=== PATIENT | male | born 1935 | race Caucasian/White ===

== ENCOUNTER 2017-10-06 11:22 | Inpatient (IN) | payer OTHER ==
[~2017-10-06] VITALS: Ht 165.1 cm; Wt 53.1 kg
[2017-10-06] MEDS ORDERED: ONDANSETRON INJ 2 MG/ML 2 ML VIAL IV PRN (11:30)
[2017-10-06] MEDS ORDERED: ACETAMINOPHEN 325 MG TAB PO PRN (11:30)
[2017-10-06 12:24] VITALS: BP 116/66; PULSE 62; TEMP 36.4; O2SAT 96
[2017-10-06 12:39] LABS: BASO % 0.5 %; BASO ABS # 0.04 K/uL (0-0.2); EOS % 6.6 %; EOS ABS # 0.51 K/uL (0-0.5); HEMATOCRIT 33.8 % (42-52); HEMOGLOBIN 11.3 g/dL (14.0-18.0); IG# 0.01 K/uL (0.00-0.02); LYMPH % 28.8 %; LYMPH ABS # 2.22 K/uL (1.2-3.4); MEAN CELL VOLUME 91.1 fL (80-100); MEAN CORPUSCULAR HEMOGLOBIN 30.5 pg (25-34); MEAN PLATELET VOLUME 9.4 fL (7.4-10.4); MONO % 8.9 %; MONO ABS # 0.69 K/uL (0.11-0.59); NEUT % 55.1 %; NEUT ABS # 4.25 K/uL (1.4-6.5); PLATELET COUNT 302 K/uL (130-400); RED CELL DISTRIBUTION WIDTH CV 13.9 % (11.5-14.5); RED CELL DISTRIBUTION WIDTH SD 46.2 fL (36.4-46.3); WHITE BLOOD COUNT 7.72 K/uL (4.8-10.8)
[2017-10-06 12:44] LABS: MEAN CORPUSCULAR HGB CONC 33.4 g/dl (32-36)
[2017-10-06 12:49] LABS: PTT PATIENT 28.2 SECONDS (21.0-31.0)
[2017-10-06 12:55] VITALS: Ht 165.1 cm; Wt 53.1 kg
[2017-10-06 12:57] LABS: BLOOD UREA NITROGEN 30 mg/dl (7-18); CALCIUM 8.8 mg/dl (8.5-10.1); CARBON DIOXIDE 26 mmol/L (21-32); CREATININE 2.23 mg/dl (0.60-1.40); GLUCOSE 77 mg/dl (70-99); POTASSIUM 3.4 mmol/L (3.5-5.1); SODIUM 134 mmol/L (136-145)
[2017-10-06] MEDS ORDERED: PIPERACILL/TAZOBAC CONSULT ACTIVE PRN (13:15)
--- NOTE | 2017-10-06 13:16 | NUR ---
A/Obs- Patient direct admit from Dr. Rizo's office for hemoptysis. Arrived to floor via wheelchair at 1200. Self ambulated into room. Oriented to room. Vitals taken. Admission packet filled out. Code and fall paperwork completed. Admission entered into computer. NPO after midnight. Call sr within reach. Will continue to monitor.
[2017-10-06] MEDS ORDERED: PIPERACILL/TAZOBAC IV 3.375 GM in DEXTROSE 5% 100ML 100 ML IV ONE (13:30)
[2017-10-06] MEDS ORDERED: IV FLUIDS COMPLETED PRN (14:00)
[2017-10-06] MEDS: IPRATROPIUM BROMIDE/ALBUTEROL respimat INH INH SCH ×3 (14:03→20:31)
--- NOTE | 2017-10-06 14:12 | DIAGNOSTIC IMAGING REPORT ---
CHEST ONE VIEW PORTABLE CLINICAL HISTORY: 82 years-old Male presenting with lung cancer wih hemoptysis. TECHNIQUE: Portable upright AP view of the chest was obtained. COMPARISON: None. FINDINGS: Median sternotomy wires and mediastinal surgical clips noted. Atherosclerosis of aortic arch. Cardiac silhouette normal in size. Suggestion of projectional distortion of the right hilum with inferior retraction. Reticular basilar predominant opacities. No large effusion or pneumothorax. Osseous structures normal. Upper abdomen normal. IMPRESSION: 1. Apparent inferior retraction of the right hilum raises concern for architectural distortion secondary to an underlying mass or fibrosis. This be better evaluated with chest CT. 2. Basilar predominant reticulation also suggests chronic lung disease. Electronically signed by: Petr Frey M.D. 10/06/2017 2:10 PM Dictated Date/Time: 10/06/2017 2:08 PM
--- NOTE | 2017-10-06 14:45 | Anesthesiology Progress Note ---
Anesthesia Progress Note Date of Service Oct 06, 2017. Progress Notes The patient is an 82 y/o male scheduled for a bronchoscopy tomorrow due to hemoptysis for the past week. The patient has no chest pain, SOB, or other symptoms that he is concerned about. He was referred to Dr. Rizo from his fountain attendant in [place]. Other PMH includes CAD s/p CABG with possible ID 12 years ago, HTN, dyslipidemia, COPD, longtime smoking history, GERD, lumbago, CKD (unknown to the patient), anemia, and prostate cancer. The patient states that he can walk up and down stairs without chest pain or SOB although he does need to use his inhaler. His CXR shows inferior retraction of his R hilum and basilar reticulation. His EKG shows sinus bradycardia. Labs are significant for hgb 11.3, potassium 3.4, BUN 30, and Cr 2.2. On exam, the patient appeared to be comfortably sitting in bed. MP 1 view with good neck extension. He is edentulous. Lungs were clear but diminished bilaterally. Heart was RRR but difficult to auscultate. Carotids were negative for bruits. The patient is an ASA 3. The patient was consented for general anesthesia. He was counseled to remain NPO after 2300 except for sips of water with pills.
--- NOTE | 2017-10-06 15:17 | HISTORY & PHYSICAL EXAMINATION ---
DATE OF ADMISSION: 10/06/2017 HISTORY OF PRESENT ILLNESS: Mr. 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 He also has a mass in his bronchus intermedius with collapse of the middle lobe. He was sent up from [place] for me to evaluate. We do not have tissue diagnosis on the right side. I was attempting to set him with an endobronchial ultrasound and with a bronchoscopy to biopsy his right middle lobe occlusive process. Both of these areas lit up on the PET scan. Unfortunately, the patient is in the [place] system, it has been difficult to get approval, so we have been trying to get this scheduled for the past month. The patient called this morning as he had hemoptysis. He had some significant hemoptysis and stated that he was coughing up "a whole trash bag" full of tissues filled with blood. When I saw him in the office, I went ahead and admitted him. I am going to set him up for bronchoscopy and an endobronchial ultrasound tomorrow. I am quite concerned about the possibility of metastatic disease here; however, I think we need a tissue diagnosis. The mass in his right side, in the bronchus intermedius does have some hypermetabolic activity; however, none of his lymph nodes are really involved. I do not see much lymphadenopathy. It is possible we were dealing with 2 different processes. I felt that a tissue diagnosis on the right was very important. The patient quit smoking a few years ago. He started smoking at age 12, smoked for 65 years. The patient states that his weight has been stable over the last couple of months. He still went from 155 to 119. He was admitted today directly from the office. PAST MEDICAL HISTORY: 1. History of prostate cancer. 2. Long history of cigarette smoking. 3. Hypothyroidism. 4. Hypercholesterolemia. 5. Hypertension. 6. Questionable glaucoma. 7. Osteoarthritis. 8. Coronary artery disease. 9. Lumbosacral disk disease. PAST SURGICAL HISTORY: 1. Inguinal herniorrhaphy. 2. Lumbar discectomy. 3. Coronary artery bypass grafting. 4. Percutaneous transluminal angioplasty and stent. ALLERGIES: No known drug allergies. MEDICATIONS: 1. Amlodipine. 2. Aspirin. 3. Casodex. 4. Combivent inhaler. 5. Gabapentin. 6. Meloxicam. 7. Omeprazole. 8. Ranitidine. 9. Simvastatin. 10. Timolol eyedrops. 11. Ambien. SOCIAL HISTORY: The patient worked in a warehouse for many years. He was exposed to some asbestos in the [place]. He is , lives alone but his 4 children are devoted to him. He quit smoking 3 years ago. FAMILY MEDICAL HISTORY: Interestingly enough, his mother from scarlet fever. His father from "natural causes." His children are alive. He had 6 siblings who are all for various reasons. REVIEW OF SYSTEMS: Over the last year, the patient has lost more than 25% of his body weight; however, he states the last couple of months, he has been relatively stable. He has been coughing up some blood. He is a bit "tired" and does not have much of an appetite. He denies any fevers, chills or productive cough other than hemoptysis. He denies chest pain or palpitations. He denies any abdominal pain, nausea or vomiting. He has had no skin breakdown. He denies any auditory or visual symptoms. He has had no neurologic symptoms. PHYSICAL EXAMINATION: GENERAL: This is a thin male who stands 5 feet 5 inches tall and weight is 109 pounds today. He is awake and alert. HEENT: His extraocular movements are intact. His pupils are equally round and reactive. Sclerae a bit pale but anicteric. He does have bilateral arcus senilis. He is edentulous. His tongue is midline. He has no oral mucosal lesions. NECK: Thin but supple and I detect no evidence of carotid bruits or lymphadenopathy. He has no neck vein distention. He has no axillary adenopathy. LUNGS: Actually, moving air fairly well. He has decreased breath sounds throughout, but I detect no wheezing. HEART: He has a regular rate and rhythm of his heart. CHEST: He has a well-healed sternotomy incision with no click. ABDOMEN: Flat, soft, nontender, I feel no evidence of abdominal aortic aneurysm. EXTREMITIES: Upon evaluation of his lower extremities, he has no edema. He has no skin breakdown. His feet are warm and well perfused, although I had some difficulty palpating his pedal pulses. NEUROLOGIC: He is awake, alert and oriented with no focal deficits. ASSESSMENT AND PLAN: Hemoptysis with known lung cancer. We are going to set him up for a diagnostic and perhaps therapeutic bronchoscopy in the morning. ANNALEE
[2017-10-06 15:38] VITALS: BP 106/62; PULSE 62; TEMP 36.3; O2SAT 96
[2017-10-06] MEDS ORDERED: METO25TA56 PO (15:47)
[2017-10-06] MEDS ORDERED: LATA0.5S OP (15:47)
[2017-10-06] MEDS ORDERED: POTA-639 PO (15:47)
[2017-10-06] MEDS ORDERED: COLE1TAB PO (15:47)
[2017-10-06] MEDS ORDERED: DORZ2SOL19 OP (15:47)
[2017-10-06] MEDS ORDERED: HYDR12.55 PO (15:47)
[2017-10-06] MEDS ORDERED: PRLSR20 PO (15:47)
[2017-10-06] MEDS ORDERED: CLOP1TAB15 PO (15:47)
[2017-10-06] MEDS ORDERED: GABA-113 PO (15:47)
[2017-10-06] MEDS ORDERED: MELO7.5T5 PO (15:47)
[2017-10-06] MEDS ORDERED: BICA50TA40 PO (15:47)
--- NOTE | 2017-10-06 16:00 | NUR ---
Obs. Note- Patient resting in bed. No complaints of pain. NPO after midnight for bronch tomorrow. Call sr within reach. Will continue to monitor.
--- NOTE | 2017-10-06 16:59 | NUR ---
A-Paged Dr. Fragoso with results of EKG. Did not return my call.
[2017-10-06 20:00] VITALS: O2SAT 96
--- NOTE | 2017-10-06 20:00 | NUR ---
OBS: Direct admit with hemoptyis. Alert and oriented, pleasant and cooperative. No complaint at this time. Plan bronchoscopy for AM.
[2017-10-06] MEDS: BICALUTAMIDE 50 MG TAB PO SCH (20:33)
[2017-10-06] MEDS: PANTOprazole SOD 40 MG TAB PO SCH (20:34)
[2017-10-06] MEDS: RANITIDINE HCL 150 MG TAB PO SCH (20:34)
[2017-10-06] MEDS: GABAPENTIN 300 MG CAP PO SCH (20:34)
[2017-10-06] MEDS: SIMVASTATIN 80 MG TAB PO SCH (20:35)
[2017-10-07] VITALS (11 sets, daily range): BP systolic 84–101; BP diastolic 44–64; PULSE 62–91; TEMP 36.4–36.8; O2SAT 95–99
--- NOTE | 2017-10-07 | NUR ---
OBS: Resting well. No complaints. NPO after midnight.
[2017-10-07] MEDS: PIPERACILL/TAZOBAC IV 3.375 GM in DEXTROSE 5% 100ML 100 ML IV SCH ×2 (01:56→13:20)
--- NOTE | 2017-10-07 05:10 | NUR ---
OBS: Sleeping well tonight. IV abx infusing. No complaint or distress.
[2017-10-07] MEDS ORDERED: LIDOCAINE HCL 2% 2 ML VIAL (20MG/ML) ONE (06:55)
[2017-10-07] MEDS ORDERED: FENTANYL CITRATE INJ 50 MCG/1 ML 2 ML VIAL ONE (06:55)
[2017-10-07] MEDS ORDERED: PROPOFOL IV EMULSION 10 MG/ML 20 ML VIAL IV ONE (06:55)
[2017-10-07] MEDS ORDERED: MIDAZOLAM HCL 1 MG/ML 2ML VIAL ONE (06:55)
[2017-10-07] MEDS ORDERED: ONDANSETRON INJ 2 MG/ML 2 ML VIAL ONE (06:55)
[2017-10-07] MEDS ORDERED: DEXAMETHASONE SOD INJ 4 MG/ML VIAL ONE (06:55)
[2017-10-07] MEDS ORDERED: REMIFENTANIL 1 MG VIAL ONE (07:20)
[2017-10-07] MEDS ORDERED: PROPOFOL IV EMULSION 10 MG/ML 100 ML VIAL IV ONE (07:20)
--- NOTE | 2017-10-07 07:35 | History & Physical Bridge Note ---
H&P Re-Evaluation Bridge Note: I have examined the patient, reviewed the History & Physical and in the interval since the performance of the History & Physical I have noted the following changes of clinical significance: No changes noted
--- NOTE | 2017-10-07 08:00 | NUR ---
Obs. Note- Patient currently out of room have bronchoscopy done.
[2017-10-07] MEDS ORDERED: ONDANSETRON INJ 2 MG/ML 2 ML VIAL IV PRN (08:30)
[2017-10-07] MEDS ORDERED: ATROPINE SULFATE 0.1 MG/ML 5ML SYR IV PRN (08:30)
[2017-10-07] MEDS ORDERED: EpHEDrine SULFATE INJ 50 MG/ML AMP IV PRN (08:30)
[2017-10-07] MEDS ORDERED: FENTANYL CITRATE INJ 50 MCG/1 ML 2 ML VIAL IV PRN (08:30)
[2017-10-07] MEDS: IPRATROPIUM BROMIDE/ALBUTEROL respimat INH INH SCH ×4 (09:00→20:50)
[2017-10-07] MEDS: TIMOLOL MALEATE 0.25% OP SOLN 5 ML BTL OP SCH (09:00)
[2017-10-07] MEDS: AMLODIPINE BESYLATE 5 MG TAB PO SCH (09:00)
[2017-10-07] MEDS: GABAPENTIN 300 MG CAP PO SCH ×2 (09:00→20:51)
[2017-10-07] MEDS: PANTOprazole SOD 40 MG TAB PO SCH ×2 (09:00→20:51)
[2017-10-07] MEDS ORDERED: THROMBIN FOR SOLN 20000 UNIT KIT ONE (09:08)
[2017-10-07] MEDS ORDERED: LARYING-O-JET KIT (LTA) ONE (09:24)
--- NOTE | 2017-10-07 10:28 | DIAGNOSTIC IMAGING REPORT ---
SINGLE VIEW CHEST CLINICAL HISTORY: Lung cancer. FINDINGS: An AP, portable, upright chest radiograph is compared to study dated 10/06/2017. The examination is degraded by portable technique and patient rotation. The patient is status post midline sternotomy. The heart is normal in size and there is atherosclerotic calcification of the thoracic ureter. The pulmonary vasculature is noncongested. There is advanced emphysema and chronic interstitial thickening. Trying for density along the right heart border likely represent right middle lobe collapse. There is an ill-defined mass lesion suggested in the left upper lobe measuring 2.9 cm. False of the left hilum may represent an enlarged pulmonary artery versus hilar adenopathy. There is increasing patchy airspace consolidation at the left lung base as compared to yesterday. A trace left pleural effusion is suspected. No pneumothorax is seen. The skeletal structures are osteopenic. The bony thorax is grossly intact. IMPRESSION: 1. Advanced emphysema. 2. There is increasing patchy airspace consolidation at the left lung base a small left pleural effusion is suspected. Correlate clinically for evidence of pneumonia/aspiration pneumonitis. 3. Suspect a left upper lobe pulmonary lesion. 4. Triangular opacity along the right cardiac border likely represents right middle lobe collapse. Electronically signed by: Gabriel Vicente M.D. 10/07/2017 10:26 AM Dictated Date/Time: 10/07/2017 10:24 AM
[2017-10-07] MEDS ORDERED: NALOXONE HCL 0.4 MG/1 ML VIAL/CARP ONE (11:02)
[2017-10-07] MEDS ORDERED: ALBUT/IPRATROP 3MG/0.5MG NEB 3 ML VIAL INH PRN (12:15)
--- NOTE | 2017-10-07 13:08 | NUR ---
A: Arrives to room E111 post op from bronchoscopy. Awake, alert and oriented X4 resting quietly in bed in no acute distress. Initial VS taken and recorded. director of front office applied, NSR. O2 on via oxy mask at 2lpm, spo2 90%, O2 increased to 6lpm. Dr. Rizo present at bedside. IV fluids of NSS initiated at 125ml/hr via left forearm access. Bladder scanned for 339ml, michael placed per Dr. Rizo. HOB elevated. Call sr within easy reach. Will continue to monitor.
[2017-10-07] MEDS: SODIUM CHLORIDE 0.9% 1000ML 1,000 ML IV SCH ×2 (13:30→17:19)
[2017-10-07] MEDS ORDERED: NURSING VERBAL MED ORDER ONE ×2 (13:45→15:45)
--- NOTE | 2017-10-07 13:46 | Critical Care Consultation ---
Critical Care Consultation Date of Consultation: Oct 07, 2017. Attending Physician: Chris Rizo MD Reason for Consultation: Postoperative care for difficulty in weaning/extubation History of Present Illness Zmt Operator: Dr. De Anda This is an 82 yo male that is POD #1 rigid bronchoscopy with biopsy. He has known NSCLCA on the left and had a suspicious lesion on the right. This was associated with hemoptysis and a 40 pound weight loss over the past several months. He was scheduled for elective bronchoscopy and possible biopsy and underwent that procedure this morning. During the procedure he had one episode of hypotension and required a single dose of jeana. Otherwise the procedure went well. EBL was minimal and the patient was generally hemodynamically stable. It was noted the patient has complete collapse of the right middle lobe secondary to a lesion. Dr. Rizo did not try to open this lobe. The patient was extubated and required re-intubation. The patient had rapid recovery and when I saw the patient in the PACU, he was following simple commands and was able to lift his head off the pillow for greater than 5 seconds. He was successfully extubated to an oxymask and transferred to ICU bed 111 for further monitoring overnight. At the time of my second examination patient was alert and oriented and able to confirm history and give a reliable review of systems. Patient has a prior history of known non-small cell lung cancer in the left. He follows with a sales account leader group in [place]. Primary care is provided through the [facility] in [place]. 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 He saw no benjamin but was exposed to asbestos on the ships. He was a previous one pack per day smoker and quit smoking three years ago. He worked in the [place] for a [employer]. He denies other environmental exposure or vocational exposure. His 30 years ago and since that time he has lived alone. His son Santi lives to his right and his grandson Santi lives to his left so he has plenty of family support at home. The patient does still drive locally and does his own shopping, cooking, cleaning, ADLs. His son helps with yard work and maintenance of the house. Past Medical/Surgical History PAST MEDICAL HISTORY: 1. History of prostate cancer. 2. 50 plus pack year cigarette smoking history. Quit 3 years ago 3. Hypothyroidism. 4. Hypercholesterolemia. 5. Hypertension. 6. Questionable glaucoma. 7. Osteoarthritis. 8. Coronary artery disease. 9. Lumbosacral disk disease. 10. NSCLCA on the left PAST SURGICAL HISTORY: 1. Inguinal herniorrhaphy. 2. Lumbar discectomy. 3. Coronary artery bypass grafting. 4. Percutaneous transluminal angioplasty and stent. Family History Mother of scarlet fever Father from neck or causes Three sons are alive. 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[employer]) Allergies Coded Allergies: No Known Allergies (Unverified , 10/06/17) Home Medications Scheduled Bicalutamide (Casodex), 50 MG PO DAILY Clopidogrel (Plavix), 75 MG PO DAILYBB Colestipol Hcl (Colestid), 1 GM PO DAILY Dorzolamide Hcl (Trusopt Oph), 1 DROPS OP BID Hydrochlorothiazide (Hydrochlorothiazide), 1 TAB PO DAILY Latanoprost (Xalatan 0.005% Oph Jen), 1 DROPS OP HS Meloxicam (Mobic), 7.5 MG PO DAILY Metoprolol Tartrate (Lopressor) (Lopressor), 1 TAB PO BID Omeprazole (Prilosec), 20 MG PO DAILY Potassium Ext Rel (Klor-Con), 20 MEQ PO DAILY Miscellaneous Medications Gabapentin (Neurontin), 300 MG PO Current Inpatient Medications Current Inpatient Medications Medications (Trade) Dose Ordered Sig/Balaji Route Start Time Stop Time Status Last Admin Dose Admin Acetaminophen (Tylenol Tab) 650 mg Q6H PRN PO 10/06/17 11:30 11/05/17 11:29 Ondansetron HCl (Zofran Inj) 4 mg Q6H PRN IV 10/06/17 11:30 11/05/17 11:29 Piperacillin Sod/ Tazobactam Sod 3.375 gm/Dextrose 115 ml @ 28.75 mls/ hr Q12H IV 10/07/17 02:00 10/13/17 23:59 10/07/17 01:56 28.75 MLS/HR Amlodipine Besylate (Norvasc Tab) 5 mg QAM PO 10/07/17 09:00 11/06/17 08:59 Albuterol/ Ipratropium (Combivent Respimat Inh) 1 puffs QID INH 10/06/17 13:00 11/05/17 12:59 10/07/17 13:31 1 PUFFS Piperacillin Sod/ Tazobactam Sod (Consult) 1 ea UD PRN N/A 10/06/17 13:15 11/05/17 13:14 Timolol Maleate (Timoptic 0.25% Oph Soln) 1 drops DAILY OP 10/07/17 09:00 11/06/17 08:59 Simvastatin (Zocor Tab) 80 mg PM PO 10/06/17 21:00 11/05/17 20:59 10/06/17 20:35 80 MG Ranitidine HCl (zANTac TAB) 150 mg HS PO 10/06/17 21:00 11/05/17 20:59 10/06/17 20:34 150 MG Pantoprazole Sodium (Protonix Tab) 40 mg BID PO 10/06/17 21:00 11/05/17 20:59 10/06/17 20:34 40 MG Gabapentin (Neurontin Cap) 900 mg HS PO 10/06/17 21:00 11/05/17 20:59 10/06/17 20:34 900 MG Gabapentin (Neurontin Cap) 300 mg QAM PO 10/07/17 09:00 11/06/17 08:59 Bicalutamide (Casodex Tab) 50 mg QPM PO 10/06/17 21:00 11/05/17 20:59 10/06/17 20:33 50 MG Miscellaneous (Iv Fluids Completed) 1 ea PRN PRN N/A 10/06/17 14:00 10/06/18 13:59 Sodium Chloride 1,000 ml @ 100 mls/hr Q10H IV 10/07/17 10:30 11/06/17 10:29 10/07/17 13:30 100 MLS/HR Albuterol/ Ipratropium (Duoneb) 3 ml Q4R PRN INH 10/07/17 12:15 11/06/17 12:14 Miscellaneous Information (Nursing Verbal Med Order) 1 ea ONE ONCE N/A 10/07/17 13:45 10/07/17 13:46 UNV Review of Systems A total of 12 systems was reviewed and is negative other than as listed above in the HPI Physical Exam Date Time Temp Pulse Resp B/P (MAP) Pulse Ox O2 Delivery O2 Flow Rate FiO2 10/07/17 13:30 36.5 71 18 89/51 (64) 95 Oxymask 6.0 10/07/17 13:00 36.8 62 20 88/64 (72) 95 Oxymask 10/07/17 12:35 67 16 111/53 95 Oxymask 5 10/07/17 12:25 36.4 67 16 105/58 95 Oxymask 5 10/07/17 12:15 83 16 111/59 95 Mechanical Ventilator 10/07/17 12:05 75 16 111/56 95 Mechanical Ventilator 10/07/17 11:55 81 20 110/63 95 Mechanical Ventilator 10/07/17 11:45 84 16 119/65 98 Mechanical Ventilator 10/07/17 11:35 86 16 130/69 100 Mechanical Ventilator 10/07/17 11:25 87 14 138/64 100 Ambu-Bag 15 10/07/17 11:15 80 14 167/76 99 Ambu-Bag 15 10/07/17 11:05 81 14 169/79 97 Ambu-Bag 15 10/07/17 10:55 72 14 161/72 88 Nasal Cannula 4 10/07/17 10:45 36.4 73 16 142/71 91 Nasal Cannula 4 10/07/17 10:35 72 16 144/68 91 Nasal Cannula 4 10/07/17 10:25 72 14 143/66 92 Oxymask 5 10/07/17 10:15 73 14 134/64 94 Oxymask 5 10/07/17 10:05 75 16 120/56 98 Oxymask 10 10/07/17 09:58 36.1 74 16 121/56 99 Oxymask 10 10/07/17 04:00 96 Room Air 10/07/17 00:00 96 Room Air 10/07/17 00:00 36.8 85 18 101/63 (76) 95 Room Air 10/06/17 20:00 96 Room Air 10/06/17 16:00 Room Air 10/06/17 15:38 36.3 62 20 106/62 (77) 96 Room Air GENERAL : No acute distress. EYES: No icterus, gaze conjugate. PERRL NOSE: No evidence of epistaxis. Oxymask in place MOUTH: No lesions or candidiasis. Upper and lower dentures in place. Bruising at the posterior oropharynx with no evidence of bleeding. No hoarseness NECK: Supple. No JVD. No stridor LUNGS: CTA B/L, no wheezes, rales or rhonchi. Decreased breath sounds in the right middle and lower lobes. No bronchospasm appreciated HEART: Regular, rate controlled ABDOMEN: Soft, NT, ND, BS Present EXTREMITIES: No LE edema, pedal pulses intact. Peripheral IV in the left hand NEURO: A&OX3. No focal neurological deficits Laboratory Results Last 24 Hours Test 10/07/17 11:23 10/07/17 11:24 10/07/17 13:22 Arterial Blood pH 7.09 Arterial Blood Partial Pressure CO2 93 mmHg Arterial Blood Partial Pressure O2 293 mm/Hg Arterial Blood HCO3 28 mmol/L Arterial Blood Oxygen Saturation 99.7 % Arterial Blood Base Excess -3.8 mEq/L Arterial Blood Gas Delivery 15 L Luther Test POS Bedside Blood Gas pH (LAB) 7.03 Bedside Blood Gas pCO2 (LAB) 100 mmHg Bedside Blood Gas pO2 (LAB) 288 mmHg Bedside Blood Gas HCO3 (LAB) 27 meq/L Bedside Blood Gas Total CO2 29 mEq/l Bedside Blood Gas Base Excess (LAB) -4.0 meq/L Bedside Blood Gas O2 Saturation 100.0 % Bedside Glucose 160 mg/dl Diagnostic Results SINGLE VIEW CHEST CLINICAL HISTORY: Lung cancer. FINDINGS: An AP, portable, upright chest radiograph is compared to study dated 10/06/2017. The examination is degraded by portable technique and patient rotation. The patient is status post midline sternotomy. The heart is normal in size and there is atherosclerotic calcification of the thoracic ureter. The pulmonary vasculature is noncongested. There is advanced emphysema and chronic interstitial thickening. Trying for density along the right heart border likely represent right middle lobe collapse. There is an ill-defined mass lesion suggested in the left upper lobe measuring 2.9 cm. False of the left hilum may represent an enlarged pulmonary artery versus hilar adenopathy. There is increasing patchy airspace consolidation at the left lung base as compared to yesterday. A trace left pleural effusion is suspected. No pneumothorax is seen. The skeletal structures are osteopenic. The bony thorax is grossly intact. IMPRESSION: 1. Advanced emphysema. 2. There is increasing patchy airspace consolidation at the left lung base a small left pleural effusion is suspected. Correlate clinically for evidence of pneumonia/aspiration pneumonitis. 3. Suspect a left upper lobe pulmonary lesion. 4. Triangular opacity along the right cardiac border likely represents right middle lobe collapse. Electronically signed by: Gabriel Vicente M.D. 10/07/2017 10:26 AM Assessment & Plan HEMOPTYSIS * Patient with known history of non-small cell lung cancer on the left * Right-sided lesion with middle lobe collapse * POD #[address] Rizo - pathology is pending * Hemoglobin 11.3, hematocrit 33.8 * Await pathology NON-SMALL CELL LUNG CANCER * Diagnostic bronchoscopy today for right lesion * Outpatient follow-up with oncology * Patient follows in [place] HISTORY OF PROSTATE CANCER * Continue Casodex 50 mg by mouth daily RENAL * BUN 30, creatinine 2.23 * Unknown baseline * Normal saline at 125 an hour * Follow serial labs * Strict I's and O's ELECTROLYTES * Sodium 134 * Normal saline at 125 mL per hour * Potassium 3.4 * KCl 40 milliequivalents by mouth * Follow serial labs ENDOCRINE * POC glucose 160 * Decadron injection * No history of diabetes mellitus * BMI 18.1 * Follow serial bedside glucose * SSI with NovoLog * Check hemoglobin A1c with a.m. labs CARDIOVASCULAR * History of hypertension * Home meds include hydrochlorothiazide 12.5 mg daily, and Lopressor 25 mg by mouth twice a day * Prior history of CABG - chronically on clopidogrel 75 mg by mouth daily * Continue home meds * Monitor on telemetry * Continue simvastatin for dyslipidemia ID * Afebrile * Empirically started on Zosyn * MRSA screening is negative IV ACCESS * Peripheral IV in place * No indication for central line at this time GI PROPHYLAXIS * Pantoprazole twice a day and ranitidine ordered * On omeprazole at home once daily DVT PROPHYLAXIS * No chemical prophylaxis secondary to hemoptysis and today's procedure * Continue starting chemical prophylaxis tomorrow if patient is stable * Discussed restarting clopidogrel with Dr. Rizo RESUSCITATION STATUS Lengthy discussion with the patient and his son Santi. At this point patient would like to be resuscitated as a full code if there is any meaningful chance of recovery. Patient states that should he have poor outcome he would not wish to be intubated for a prolonged period of time and does not want artificial feeding in that case. CCT: 60 minutes independent of any procedures Thank you for including us in the care of this patient. Please refer to Dr. De Anda's addendum for further recommendations. Addendum: Spoke with Gabriel Gallardo and [facility] regarding case. He was interviewed and examined. Patient's condition is poor. Progressive lung cancer with global performance decline. Palliative/hospice care would be appropriate. Recommend gentle hydration and general monitor/support.
--- NOTE | 2017-10-07 13:59 | NUR ---
A:DR CALIX IN TO SEE PT AT THIS TIME. PT'S FAMILY AT BEDSIDE
[2017-10-07] MEDS ORDERED: GLUCOSE 10 TABS/TUBE PO PRN (14:45)
[2017-10-07] MEDS ORDERED: GLUCOSE 40% GEL 15 GM TUBE PO PRN (14:45)
[2017-10-07] MEDS ORDERED: DEXTROSE 50% 50 ML SYR IV PRN (14:45)
[2017-10-07] MEDS ORDERED: GLUCAGON FOR INJ 1 MG VIAL SQ PRN (14:45)
--- NOTE | 2017-10-07 14:56 | Anesthesiology Progress Note ---
Anesthesia Post Op Note Date & Time Oct 07, 2017 at 13:03 Vital Signs Pain Intensity: 0 Vital Signs Past 12 Hours Date Time Temp Pulse Resp B/P (MAP) Pulse Ox O2 Delivery O2 Flow Rate FiO2 10/07/17 12:35 67 16 111/53 95 Oxymask 5 10/07/17 12:25 36.4 67 16 105/58 95 Oxymask 5 10/07/17 12:15 83 16 111/59 95 Mechanical Ventilator 10/07/17 12:05 75 16 111/56 95 Mechanical Ventilator 10/07/17 11:55 81 20 110/63 95 Mechanical Ventilator 10/07/17 11:45 84 16 119/65 98 Mechanical Ventilator 10/07/17 11:35 86 16 130/69 100 Mechanical Ventilator 10/07/17 11:25 87 14 138/64 100 Ambu-Bag 15 10/07/17 11:15 80 14 167/76 99 Ambu-Bag 15 10/07/17 11:05 81 14 169/79 97 Ambu-Bag 15 10/07/17 10:55 72 14 161/72 88 Nasal Cannula 4 10/07/17 10:45 36.4 73 16 142/71 91 Nasal Cannula 4 10/07/17 10:35 72 16 144/68 91 Nasal Cannula 4 10/07/17 10:25 72 14 143/66 92 Oxymask 5 10/07/17 10:15 73 14 134/64 94 Oxymask 5 10/07/17 10:05 75 16 120/56 98 Oxymask 10 10/07/17 09:58 36.1 74 16 121/56 99 Oxymask 10 10/07/17 04:00 96 Room Air Notes Mental Status: alert / awake / arousable, participated in evaluation Pt Amnestic to Procedure: Yes Nausea / Vomiting: adequately controlled Pain: adequately controlled Airway Patency, RR, SpO2: stable & adequate BP & HR: stable & adequate Hydration State: stable & adequate The patient is an 82 y/o male with a hx of COPD, [place] s/p CABG, CAD, HTN, dyslipidemia, CKD, Anemia and lung CA s/p EBUS/bronchoscopy with Dr. Rizo. Intraoperatively, the patient was intubated and placed under general anesthesia. The patient did well remaining hemodynamically stable with oxygen saturations of 100% on Fi02 of 1.0. During the rigid bronchoscopy the patient' s volatile anesthetic was turned off and the patient was given a TIVA with propofol and a remifentanil infusion for more consistent anesthesia. The propofol and remifentanil were discontinued at the end of the procedure. The patient's paralytic was fully reversed with 4/4 twitches obtained even prior to giving reversal. The patient was extubated by Brian, the DEBONE PROCESSING SUPERVISOR in the OR. He was following commands and spontaneously ventilating with a tidal volume of 323 ml, RR 18 and ETC02 of 40 prior to extubation. I was present as the patient was transferred to the PACU. Approximately 30 minutes after the patient was taken to PACU, I was called by the nurse to sign the patient out of the PACU. He stated that the patient was doing well. I went to the patient's bedside. He was saturating 92% on 4L NC,RR 14 and his BP was stable. The patient appeared to be still quite lethargic from his anesthetic and was only minimally responsive. I told the PACU nurse that I would not sign out the patient until he was more awake and that we would have to watch him longer. Several minutes after leaving the PACU I was called again by the PACU and told that the patient was being mask ventilated with the Ambu bag as his oxygen saturation had dropped to the 80s and he was unresponsive. I immediately went to the patient's bedside with Brian. The patient's SpO2 was in the 90s and BP was stable but the patient did not arouse to sternal rub. The patient's pupils were constricted, so Narcan 0.04mg IV x2 was given. The patient did not respond to the Narcan. It was difficult to maintain a mask seal with the Ambu bag due to the patient's anatomy so a LMA 5 was placed to help ventilate the patient. An ABG was drawn and showed a respiratory acidoses with PH 7.02 and PC02 100. The patient was reintubated and placed on the ventilator as his hypercarbia was the likely case of his sedation. Around 15 minutes after being placed on the ventilator, the patient started to become more alert. He opened his eyes and was following commands. He was pulling tidal volumes of 1L and his RR was 18. The patient was successfully extubated. He will be going to the ICU for further monitoring. A full report was given to Daniel Gallardo.
--- NOTE | 2017-10-07 14:57 | NUR ---
Pastoral Care, initial visit with pt, son, and [id number]. Pt has no church affiliation, did not express any spiritual or church needs or concerns. I introduced our service, offered spiritual and emotional support, and assured them of my continuing availability.
--- NOTE | 2017-10-07 15:06 | NUR ---
A: Dr. De Anda aware of Dr. Howell desire to keep map >80. New orders for bolus initiated as ordered. Report given to LUC Enrique, awaiting new orders.
--- NOTE | 2017-10-07 15:29 | NUR ---
RD received trigger for MUST & Low BMI, refer to linked note for full assessment and recommendations. Addendum: 10/07/17 at [address] Amended: Links added.
[2017-10-07] MEDS ORDERED: POTASSIUM CHLORIDE 10 MEQ TABCR PO ONE (15:45)
[2017-10-07] MEDS ORDERED: NOREPINEPHRINE BIT INJ 8 MG in DEXTROSE 5% 500ML 500 ML IV PRN (16:00)
[2017-10-07] MEDS: INSULIN ASPART 100 UNITS/ML 3 ML PEN SC SCH ×2 (16:00→21:00)
--- NOTE | 2017-10-07 16:00 | NUR ---
resting in bed with eyes closed, arouses to name, denies discomfort,, BP 92/50, IV Fluids continue, skin warm and dry, color pale, respirations non-labored, breath sounds diminished with some coarse sounds on the left, oxymask in place at 6L/min. Dr. Rizo in states to wean O2 to maintain 90% saturation, O2 decreased to 4L/min, monitor shows SR with an occ. PVC, good pulses, no edema, abdomen soft, non-tender, positive bowel sounds
--- NOTE | 2017-10-07 16:13 | NUR ---
Case Management Note- Met with patient at bedside. Patient appears alert & oriented. He states that he lives alone in a trailer with 3 KAIDEN. He has a walker, but does not use any devices for ambulating. Patient is independent with ADL's and is able to perform solid waste manager. His son lives next door and his grandson lives down the street. They are able to assist when needed. Patient does not drive, but his family provides transportation. Role of Fixed Income Director explained. Patient plans to return home and denies any needs. Discussed home health, but patient does not think it's necessary at this time. Will continue to follow.
--- NOTE | 2017-10-07 17:00 | NUR ---
placed on nasal cannula to eat, O2 decreased to 3L/min.
[2017-10-07 17:09] LABS: CALCIUM 8.1 mg/dl (8.5-10.1); CREATININE 1.77 mg/dl (0.60-1.40); POTASSIUM 3.3 mmol/L (3.5-5.1)
--- NOTE | 2017-10-07 18:00 | NUR ---
appetite fair for supper ate about 25% no difficulty swallowing, doing well on nasal cannula will leave in place
--- NOTE | 2017-10-07 18:04 | OPERATIVE REPORT ---
DATE OF OPERATION: 10/07/2017 PROCEDURES: 1. Endobronchial ultrasound with biopsy. 2. Rigid and flexible bronchoscopy with destruction of tumor, right bronchus intermedius. SURGEON: Chris Rizo MD GOLF COURSE SUPERINTENDENT: Alex Dexter, respiratory therapy. ANESTHESIA: General anesthesia endotracheal intubation. 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 This was diagnosed via needle biopsy. He also has an obstructing lesion in his bronchus intermedius. It was read up on the PET scan; however, we saw no hypermetabolic activity in the mediastinum. SPECIFICS OF PROCEDURE: On 10/07/2017, I brought the patient to the operating room and did an endobronchial ultrasound. He had an obstructing mass which was seen in the bronchus intermedius. I biopsied the level 7 node as well and then biopsied this mass with the needle. 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 The patient has occlusion of his right middle lobe bronchus with a collapse and I debulked this using a cryoprobe. We removed a large amount of this tissue. He has developed some bleeding and we had to use epinephrine as well as ice saline and then thrombin and this finally settled down and stopped. We were able to get by this mass, but it was completely obstructing the right middle lobe bronchus. He tolerated it well, although had to be reintubated in the unit due to a persistent sedation. DESCRIPTION OF PROCEDURE: The patient brought to the operating room and laid placed in supine position. General anesthesia induced and additional endotracheal was performed with a single lumen endotracheal tube. After appropriate timeout had been given and antibiotics administered, the endobronchial ultrasound probe was placed. The left airway was inspected and there was some thin white sputum, but really no lesions noted. There was immediately noted an obstructing lesion in the bronchus intermedius. I then used the ultrasound portion and he had a subcarinal node in the level 7 area which was really not very large. 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 This process completely replaced the lymph node. He really did not have much on station 4 on either side. He has non-small cell lung carcinoma bilaterally. 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 The endobronchial ultrasound scope was removed and a regular fiberoptic bronchoscope was placed through the endotracheal tube. Upon coming down to the mass, I then used a cryoprobe and froze several pieces and got a significantly large piece sent off to the lab. I was able to get the fiberoptic bronchoscope down around the mass opposite the takeoff of the middle lobe bronchus. This was a bit more posterior and lateral. The right lower lobe airways looked fine. It should be noted that the right lower lobe was fully inflated on CT scan and x-ray. I then used a cryoprobe several times and debulked this and controlled bleeding. We switched him over to a Dangelo rigid bronchoscope and intubated him without difficulty and I went down again with the long rigid sucker tip stable to evaluate the mass a bit more closely and then used a cryoprobe to freeze this tissue. I attempted to use the cupped forceps to biopsy this; however, this caused a pretty significant bleeding to be controlled with iced saline, epinephrine and then with thrombin as well with the cryoprobe. This settled down nicely. We removed several portions; however, at this point the patient given his age and obvious diffuse disease, we elected to pull back. I do not think we would be able to get this middle lobe bronchus open. After spraying thrombin and letting it sit for a few minutes, we then suction this off and there was really no further bleeding. I suction out all airways and the right upper lobe was widely patent as was the left upper lobe and left lower lobe. He tolerated this well and was extubated; however, he was still a bit sedated and had to be reintubated until the anesthetic agents wore off and he was extubated and was stable upon transfer to the intensive care unit for observation. I attest to the content of the Intraoperative Record and any orders documented therein. Any exceptions are noted below. ANNALEE
--- NOTE | 2017-10-07 20:00 | NUR ---
awake and alert, resting in bed, respirations non-labored, nasal cannula decreased to 2L/min., bilateral breath sounds remain diminished, monitor shows SR, positive pulses, negative edema, abdomen soft, non-tender, positive bowel sounds, Michael catheter patent for clear yellow urine, PM care given with comfort bath, michael catheter care done, turned and repositioned in bed, sacral area red,lotion applied, allevyn patch applied, continues to deny discomfort, will continue to monitor
[2017-10-07] MEDS: BICALUTAMIDE 50 MG TAB PO SCH (20:50)
[2017-10-07] MEDS: RANITIDINE HCL 150 MG TAB PO SCH (20:51)
[2017-10-07] MEDS: SIMVASTATIN 80 MG TAB PO SCH (20:52)
[2017-10-08] VITALS: BP 111/51; PULSE 88; TEMP 36.9; O2SAT 92
--- NOTE | 2017-10-08 | NUR ---
A:Nursing assessment completed. Pt resting in bed with eyes closed, wakes easily. Breath sounds diminished through out. Maintaining spo2 on 2l nasal cannula. Blood pressure improving. Adequate urine output. Ivf infusing without difficulty. Nsr displaying on monitor. Denies needs at this time. Call sr within reach.
[2017-10-08] MEDS ORDERED: NURSING VERBAL MED ORDER ONE (00:30)
--- NOTE | 2017-10-08 00:31 | NUR ---
Dr. Rizo on unit. Ivf decreased to 80 ml/hr per verbal order.
[2017-10-08] MEDS: SODIUM CHLORIDE 0.9% 1000ML 1,000 ML IV SCH (01:44)
[2017-10-08] MEDS: PIPERACILL/TAZOBAC IV 3.375 GM in DEXTROSE 5% 100ML 100 ML IV SCH (01:45)
[2017-10-08 02:00] VITALS: BP 91/46; PULSE 80; O2SAT 95
--- NOTE | 2017-10-08 02:00 | NUR ---
A:Resting in bed. Vital signs stable, no distress.
[2017-10-08 04:00] VITALS: BP 94/50; PULSE 81; TEMP 37; O2SAT 97
--- NOTE | 2017-10-08 04:00 | NUR ---
A:Awake, drinking coffee. Titrated oxygen to room air. No distress. Adequate urine output.
[2017-10-08 06:00] VITALS: BP 95/50; PULSE 80; O2SAT 92
--- NOTE | 2017-10-08 06:00 | NUR ---
Am labs pending. Remains on room air. Declines am care at this time.
[2017-10-08 06:14] LABS: HEMATOCRIT 26.6 % (42-52); MEAN CELL VOLUME 90.8 fL (80-100); MEAN CORPUSCULAR HEMOGLOBIN 30.7 pg (25-34); MEAN CORPUSCULAR HGB CONC 33.8 g/dl (32-36); MEAN PLATELET VOLUME 8.7 fL (7.4-10.4); PLATELET COUNT 235 K/uL (130-400); RED CELL DISTRIBUTION WIDTH CV 13.8 % (11.5-14.5); RED CELL DISTRIBUTION WIDTH SD 45.9 fL (36.4-46.3); WHITE BLOOD COUNT 11.81 K/uL (4.8-10.8)
[2017-10-08] MEDS: INSULIN ASPART 100 UNITS/ML 3 ML PEN SC SCH (06:45)
[2017-10-08 06:46] LABS: HEMOGLOBIN A1C 5.6 % (4.5-5.6)
[2017-10-08 06:51] LABS: BASO % 0.1 %; BASO ABS # 0.01 K/uL (0-0.2); IG# 0.03 K/uL (0.00-0.02); LYMPH % 8.9 %; LYMPH ABS # 1.05 K/uL (1.2-3.4); MONO % 7.6 %; NEUT % 83.1 %; NEUT ABS # 9.82 K/uL (1.4-6.5)
[2017-10-08 06:56] LABS: CALCIUM 7.9 mg/dl (8.5-10.1); CREATININE 1.61 mg/dl (0.60-1.40); PHOSPHORUS 2.6 mg/dl (2.5-4.9); POTASSIUM 4.1 mmol/L (3.5-5.1)
--- NOTE | 2017-10-08 07:16 | Discharge Instructions ---
Discharge Instructions Date of Service Oct 08, 2017. Admission Reason for Admission: Hemoptysis Discharge Discharge Diagnosis / Problem: Hemoptysis; Lung Cancer Discharge Goals Goal(s): Learn about illness Activity Recommendations Activity Limitations: resume your previous activity Lifting Limitations: none . Instructions / Follow-Up Instructions / Follow-Up 1. Follow-up with you outboard technician in [place] within [address] Rizo with assist with arranging an oncology referral for you. Current Hospital Diet Patient's current hospital diet: Regular Diet Discharge Diet Recommended Diet: Regular Diet Procedures Procedures Performed: Endobronchial Ultrasound; Bronchoscopy and Rigid Bronchoscopy with biopsy Pending Studies Studies pending at discharge: no Laboratory Results Hemoglobin A1c Test 10/08/17 06:02 Range/Units Estimated Average Glucose 114 mg/dl Hemoglobin A1c 5.6 4.5-5.6 % Medical Emergencies . Who to Call and When: Medical Emergencies: If at any time you feel your situation is an emergency, please call 911 immediately. . Non-Emergent Contact Non-Emergency issues call your: Field Evidence Technician Call Non-Emergent contact if: you have a fever, you have any medication questions . "Provider Documentation" section prepared by Mando Fragoso. . VTE Core Measure Inpt VTE Proph given/why not?: SCD's
--- NOTE | 2017-10-08 07:19 | Clinical Documentation Query ---
CLINICAL DOCUMENTATION QUERY QUERY 1 OF 3 82-year-old male who has lost greater than 40 pounds in the last year was found to have a nonsmall cell lung carcinoma in his left upper lobe. He also has a mass in his bronchus intermedius with collapse of the middle lobe. In your clinical opinion is this patient being managed for: ( ) Severe protein-calorie malnutrition ( ) Not Agree ( ) Other explanation of clinical findings (Please Explain) ( ) Unable to determine (Please Define) ( ) Need to Discuss The medical record reflects the following clinical findings, treatment, and risk factors. Clinical Indicators: BMI 18.1, weight loss of more than 25% of body weight Treatment: Dietary consult, shake supplements, daily weights Risk Factors: Age, lung cancer QUERY 2 OF 3 In your clinical opinion is this patient being managed for: ( ) Acute post procedural pulmonary insufficiency, treated and resolved ( ) Not Agree ( ) Other explanation of clinical findings (Please Explain) ( ) Unable to determine (Please Define) ( ) Need to Discuss The medical record reflects the following clinical findings, treatment, and risk factors. Clinical Indicators: Mask ventilation w/Ambu bag, O2 sat 80s, unresponsiveness, respiratory acidosis Treatment: Intubation, mechanical ventilation, nebulizer treatments Risk Factors: Age, lung cancer, s/p bronchoscopy QUERY 3 OF 3 In your clinical opinion is this patient being managed for: ( ) Acute kidney failure, resolved ( ) Not Agree ( ) Other explanation of clinical findings (Please Explain) ( ) Unable to determine (Please Define) ( ) Need to Discuss The medical record reflects the following clinical findings, treatment, and risk factors. Clinical Indicators: Creatinine 2.23 trending down to 1.77, GFR 26.1 trending up to 34.5 Treatment: IV hydration, serial PRPs Risk Factors: Age, severe malnutrition Please clarify and document your clinical opinion in the progress notes and discharge summary. Terms such as "probable", "suspected", "likely", "questionable", "possible", or "still to be ruled out" are acceptable. IF IN AGREEMENT, YOU MUST DOCUMENT ABOVE DIAGNOSTIC STATEMENT IN DAILY PROGRESS NOTES AND DISCHARGE SUMMARY. This document is not part of the patient's record. Thank You, Leigh Jorgensen RN [phone]
[2017-10-08] MEDS: AMLODIPINE BESYLATE 5 MG TAB PO SCH (07:29)
[2017-10-08] MEDS: PANTOprazole SOD 40 MG TAB PO SCH (07:30)
[2017-10-08] MEDS: GABAPENTIN 300 MG CAP PO SCH (07:30)
[2017-10-08] MEDS: TIMOLOL MALEATE 0.25% OP SOLN 5 ML BTL OP SCH (07:30)
--- NOTE | 2017-10-08 07:30 | NUR ---
A: Patient awake, alert and oriented. Sinus rhythm with frequent PACS noted, current heart rate 74/minute. Afebrile. Denies pain/discomfort. Lungs diminished, O2 saturation 95% on room air, patient denies sob, no cough noted. Orders received to remove Camacho catheter and ambulate patient. If activity tolerated without difficulty, patient will be discharged to home.
[2017-10-08] MEDS: IPRATROPIUM BROMIDE/ALBUTEROL respimat INH INH SCH (07:31)
--- NOTE | 2017-10-08 07:37 | DIAGNOSTIC IMAGING REPORT ---
CHEST ONE VIEW PORTABLE CLINICAL HISTORY: FOB/lung ca dyspnea COMPARISON STUDY: 10/07/2017 FINDINGS: Slight improvement compared to the prior exam. Infiltrative process of the left mid and lower lung is mildly improved. The triangular right middle lobe atelectasis/consolidative change remains unaltered. Slight improvement in interstitial change of the right midlung region. Prior median sternotomy. IMPRESSION: Moderately improved exam with improving interstitial inflammatory changes of both lungs. 2. Unchanged parenchymal density peripheral left apex as well as unchanging triangular density right middle lobe The above report was generated using voice recognition software. It may contain grammatical, syntax or spelling errors. Electronically signed by: Marco Burgess M.D. 10/08/2017 7:36 AM Dictated Date/Time: 10/08/2017 7:34 AM
--- NOTE | 2017-10-08 07:59 | DISCHARGE SUMMARY ---
DISCHARGE DIAGNOSES: 1. Hemoptysis. 2. Nonsmall cell lung carcinoma, bronchus intermedius. 3. Nonsmall cell lung carcinoma, left upper lobe. 4. Mediastinal involvement with metastatic disease. 5. Renal insufficiency. HOSPITAL COURSE: Mr. Fowler is a very nice 82-year-old gentleman who had lost about 1/4 of his body weight in the last year. He is found to have nonsmall cell lung carcinoma of his left upper lobe diagnosed via needle biopsy. I was asked to see him because obstructing mass also in his right bronchus intermedius. I saw the patient in the office as we are getting him worked up for an endobronchial ultrasound and a regular bronchoscopy and he was having hemoptysis. For this reason, I admitted him and brought him to the operating room the following day on 10/07/2017. He does indeed have an obstructing lesion in his bronchus intermedius. I debulked this with a cryoprobe and did a rigid bronchoscopy also. Also, did endobronchial ultrasound and biopsied level 7 node and this was positive for what appears to be a squamous cell carcinoma. In addition, the mass obstructing the bronchus intermedius also appeared to be a squamous cell carcinoma on rapid on site evaluation. We debulked this and got some bleeding which was controlled with the cryoprobe as well as epinephrine and cold saline and thrombin. This stopped nicely. This mass is completely occluding the right middle lobe bronchus. The right lower lobe bronchus remains aerated. He tolerated it well; however, he was quite sedated and had to be reintubated in the postanesthesia care unit. It is important to understand this man weighs 109 pounds. He finally woke up and looked good last night. I was concerned about his creatinine which was 2.32 pre-op. We kept him on IV fluids, also started him on some antibiotics, but he really did not have any fevers or chills and we stopped these the day of discharge. His urine output was quite good overnight. The following day, he was on room air. He was tolerating a regular diet. I discharged him home on 10/08/2017. He will follow up with his payroll manager, oncologist and radiation therapist down in [place]. [facility] HEALTH SYSTEMLucia
[2017-10-08 08:00] VITALS: BP 103/50; PULSE 74; TEMP 36.8; O2SAT 95
--- NOTE | 2017-10-08 08:07 | Anesthesiology Progress Note ---
Anesthesia Post Op Note Date & Time Oct 08, 2017 at 08:06 Vital Signs Pain Intensity: 0.0 Vital Signs Past 12 Hours Date Time Temp Pulse Resp B/P (MAP) Pulse Ox O2 Delivery O2 Flow Rate FiO2 10/08/17 06:00 80 16 95/50 (65) 92 Nasal Cannula 2.0 10/08/17 04:00 37.0 81 15 94/50 (65) 97 Nasal Cannula 2.0 10/08/17 02:00 80 14 91/46 (61) 95 Nasal Cannula 2.0 10/08/17 00:00 36.9 88 12 111/51 (71) 92 Nasal Cannula 2.0 10/07/17 22:00 36.7 91 21 100/52 (68) 97 Nasal Cannula 2.0 Notes Mental Status: alert / awake / arousable, participated in evaluation Pt Amnestic to Procedure: Yes Nausea / Vomiting: adequately controlled Pain: adequately controlled Airway Patency, RR, SpO2: stable & adequate BP & HR: stable & adequate Hydration State: stable & adequate Anesthetic Complications: no major complications apparent
--- NOTE | 2017-10-08 08:15 | NUR ---
A: Camacho catheter discontinued, patient voided a small amount.
[2017-10-08 08:30] VITALS: BP 103/50; PULSE 74; TEMP 36.8; O2SAT 95
--- NOTE | 2017-10-08 08:30 | NUR ---
A: Patient ambulated in hallway without difficulty.
[2017-10-08] MEDS ORDERED: POTASSIUM CHLORIDE 20 MEQ TABCR PO SCH (09:00)
[2017-10-08] MEDS ORDERED: PIPERACILL/TAZOBAC IV 3.375 GM in DEXTROSE 5% 100ML 100 ML IV SCH (10:00)
== END 2017-10-08 08:55 | disposition home or self-care (01) | DRG 167 ==
LOC: C.MS2W 11:49 → ENRESERV 10-07 12:31 → C.MSICU 10-07 12:52 → OBSVTOIN 10-07 16:51
PROVIDERS: ADMIT Surgery; ATTEND Surgery
PROC: 0BB38ZX Excision of Right Main Bronchus, Via Natural or Artificial Opening Endoscopic, Diagnostic (ICD-10-PCS; principal; 2017-10-07 07:30)
PROC: 07B74ZX Excision of Thorax Lymphatic, Percutaneous Endoscopic Approach, Diagnostic (ICD-10-PCS; principal; 2017-10-07 07:30)
DX: C34.12 Malignant neoplasm of upper lobe, left bronchus or lung (principal); R04.2 Hemoptysis; E03.9 Hypothyroidism, unspecified; E78.00 Pure hypercholesterolemia, unspecified; I10 Essential (primary) hypertension; M19.90 Unspecified osteoarthritis, unspecified site; I25.10 Atherosclerotic heart disease of native coronary artery without angina pectoris; Z85.46 Personal history of malignant neoplasm of prostate